=== PATIENT | male | born 1965 | race Caucasian/White ===

== ENCOUNTER → 2021-01-09 | Outpatient (CLI) | payer MEDICARE, OTHER ==
[~2021-01-09] MED LIST: CYCLOBENZAPRINE5 MG PO; MOBIC15 MG PO; NAPROSYN500 MG PO; ZOFRAN4 MG PO
== END ==
LOC: KOH-I 08:45
DX: M25.512 Pain in left shoulder (principal); M25.511 Pain in right shoulder
CPT/HCPCS: 73030

== ENCOUNTER → 2021-04-16 | Outpatient (CLI) | payer MEDICARE | LOC: KOH-I 10:15 | DX: M50.30 Other cervical disc degeneration, unspecified cervical region (principal); M47.812 Spondylosis without myelopathy or radiculopathy, cervical region | CPT/HCPCS: 72141 ==

== ENCOUNTER → 2021-06-01 | Outpatient (CLI) | payer MEDICARE | LOC: HEART 5 08:45 | DX: I10 Essential (primary) hypertension (principal) | CPT/HCPCS: 78452; A9502; J2785 ==

== ENCOUNTER → 2022-01-22 | Outpatient (CLI) | payer MEDICARE | LOC: LAB 09:01 | DX: E11.9 Type 2 diabetes mellitus without complications (principal); M51.36 Other intervertebral disc degeneration, lumbar region | CPT/HCPCS: 36415; 83036; 87081 ==

== ENCOUNTER → 2022-02-01 | Outpatient (CLI) | payer MEDICARE | LOC: KOH-I 11:19 | DX: M47.812 Spondylosis without myelopathy or radiculopathy, cervical region (principal) | CPT/HCPCS: 72040; 73030 ==

== ENCOUNTER → 2022-05-25 | Outpatient (CLI) | payer MEDICARE | LOC: KOH-I 12:19 | DX: M47.26 Other spondylosis with radiculopathy, lumbar region (principal); M51.16 Intervertebral disc disorders with radiculopathy, lumbar region; M47.12 Other spondylosis with myelopathy, cervical region; M48.061 Spinal stenosis, lumbar region without neurogenic claudication; M48.07 Spinal stenosis, lumbosacral region; M47.817 Spondylosis without myelopathy or radiculopathy, lumbosacral region; M51.37 Other intervertebral disc degeneration, lumbosacral region; M51.34 Other intervertebral disc degeneration, thoracic region; M25.78 Osteophyte, vertebrae; M47.813 Spondylosis without myelopathy or radiculopathy, cervicothoracic region | CPT/HCPCS: 72141; 72146; 72148 ==